=== PATIENT | female | born 1995 | race Caucasian/White ===

== ENCOUNTER → 2022-10-14 08:10 | Outpatient (BNVA) | payer OTHER, SELFPAY | PROVIDERS: PCP Internal Medicine; Referring Provider Internal Medicine; Visit Provider Physician Assistant Surgical ==

== ENCOUNTER → 2022-11-15 08:33 | Outpatient (BNVA) | payer OTHER, SELFPAY | PROVIDERS: PCP Internal Medicine; Visit Provider Physician Assistant | DX: E66.01 Morbid (severe) obesity due to excess calories (principal); Z68.41 Body mass index [BMI] 40.0-44.9, adult | CPT/HCPCS: 99202 ==

== ENCOUNTER 2023-01-04 09:01 | Outpatient (AMB) | payer OTHER, SELFPAY ==
--- NOTE | 2023-01-04 09:05 | A.OFFVIS_ITS ---
Intake VS Expanded 01/04/23 09:22 Height 5 ft 3 in Weight 230 lb BMI 40.7 Body Fat 101. Body Fat Percentage 43.8 Muscle Mass 123.0 Visceral Mass 10 Water Mass 93.2 BMR 1,860 Intake Visit Reasons: (OV) Initial Nutrition SWL Allergies No Known Allergies Allergy (Verified 11/15/22 08:38) HPI Nutrition Presentation Details Medical weight-start date 11/15/22 with Meryl Starting weight 241 Current weight today 230# - body comp noted and appears to be maintaining muscle mass and losing primarily fat mass I don't want to be the weight you guys want me at , she is comfortable at 160# Reason for consult elevated BMI Diet Assmnt Details 8:30am Premier shake - powder and powder (2 scoops in almond milk) Lunch salad (lettuce, tomato, carrots, cucumber, grilled chicken, low fat cheese sometimes, and dressing uses LF ranch or bals 4pm snack: protein bar or occitan yogurt Oikos or fruit 8pm dinner - salad and protein Premier coffee flavor in coffee - we talked about watching caffeine intake. Exercise: None now. was going with her friend, but her friend doesn't go anymore. pt feels that workout videos are very boring classes: 4/8 Previous weight loss methods attempted Her goal is to lose weight and be happier with her self. She reports first being concerned about her weight about 5 years ago.. She has tried multiple methods of weight loss including portion control without permanent results. She lives with her mother, sister and boyfriend. She works 5 days per week from 8;30 - 6 pm. Dietary counseling reduction Diagnosis Nutrition problem #1 overweight/obesity As related to (etiology) #1 excess energy intake and physical inactivity As evidenced by (sign/symptom) #1 high BMI Monitoring/Goals Nutrition problem monitoring total energy intake, level of knowledge/skill, total PRO intake, total CHO intake and weight Outcome progress progressing Learning/Education Readiness to learn good Stages of change action Educational materials provided Yes Most Recent Diabetes Results: No Data to Display [facility] Surgical History No pertinent past surgical history Family History Mother No problems noted. Father No problems noted. Social History Alcohol intake: current Alcohol intake frequency: holidays/special occasions only Patient Tobacco Use Status: Never used Tobacco Assessment & Plan Assessment & Plan (1) Morbid obesity: Code(s): E66.01 - Morbid (severe) obesity due to excess calories Patient Instructions: Pt felt todays appt was very productive. Discussed rationale for goal weihgt numbers . helped her with different bar and shake recs, also recipes and variety in her diet. continue walking 45+ minutes at least everyday with her dog and encouraged watching some videos at home for strength based workouts. Pt welcome to schedule f/u with me at the end of [facility] program Coding Level of Care Code Nutr Indiv Intake (05638) Diagnoses Morbid obesity E66.01 Time Spent (min) 40
[2023-01-04 09:22] VITALS: BMI 40.7
== END 2023-01-04 09:50 | disposition home or self-care (01) ==
PROVIDERS: PCP Internal Medicine; Visit Provider Dietitian, Registered
DX: E66.01 Morbid (severe) obesity due to excess calories (principal)

== ENCOUNTER → 2023-01-04 09:01 | Outpatient (BNVA) | payer OTHER, SELFPAY | PROVIDERS: PCP Internal Medicine; Visit Provider Dietitian, Registered | DX: E66.01 Morbid (severe) obesity due to excess calories (principal); Z68.41 Body mass index [BMI] 40.0-44.9, adult; Z71.3 Dietary counseling and surveillance | CPT/HCPCS: 97802 ==

== ENCOUNTER 2023-02-09 08:33 | Outpatient (AMB) | payer OTHER, SELFPAY ==
--- NOTE | 2023-02-09 08:35 | MHC.OFFVISWM ---
Intake VS Expanded 02/09/23 08:38 Height 5 ft 3 in Weight 232 lb BMI 41.1 BP 120/71 Blood Pressure Location Rt brachial Blood Pressure Position Sitting Respiratory Rate 16 Pulse 80 Pulse Source Pulse Oximeter Temp 97.3 F Temperature Source Temporal Artery Scan Pulse Oximetry 96 Oxygen Delivery Method Room Air Body Fat 107.0 Body Fat Percentage 46.1 Free Fat Mass 125.0 Muscle Mass 118.6 Visceral Mass 11.0 Water Mass 90.0 BMR 1,811 Intake Visit Reasons: (OV) F/U [facility] Allergies No Known Allergies Allergy (Verified 02/09/23 08:44) Medication List - Last Reviewed 02/09/23 by SUDHEER Frances amitriptyline 25 mg PO BEDTIME HPI HPI Comments History of Present Illness Details [facility] followup, [employer]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 Now 232 lbs, TBWL is 9.8 lbs or 4%. Pt states she recently started skipping 4 pm protein snack, stopped exercising and wants more ideas for vegetarian sources of protein. Meal plan - 8:30 am - Premier shake RTD, or with UAM - over 30 - 60 minutes 1pm - 2-3 oz chicken and < 6 oz salad or tuna and salad 4pm - - often misses this due to work schedule 8pm - same as lunch - but has 5 oz vegetable and 3 oz protein Exercise - gym 2-3 d elliptical - burning 200 calories, level 6, resistance ?Didn't liek thte LS videos PFSH Surgical History No pertinent past surgical history Family History Mother No problems noted. Father No problems noted. Social History Alcohol intake: current Alcohol intake frequency: holidays/special occasions only Patient Tobacco Use Status: Never used Tobacco Physical Exam Vital Signs: Last Vital Signs Temp 97.3 F 02/09/23 08:38 Pulse 80 02/09/23 08:38 Resp 16 02/09/23 08:38 BP 120/71 02/09/23 08:38 Pulse Ox 96 02/09/23 08:38 Oxygen Delivery Method Room Air 02/09/23 08:38 BMI result Body Mass Index 41.1 Assessment & Plan Assessment & Plan (1) Morbid obesity: Code(s): E66.01 - Morbid (severe) obesity due to excess calories Plan: [facility] program - she now understands the importance of consistent eating behaviours and role of exericse in weigh loss. Knows she needs to go Exercise - 4d - Sa, tue, , - elliptical 300 calories -- goal 2,00 devi/week. TBP - 30 minutes.2 d/week. We talked about adding tofu, seitan and tempeh to her meal planning, always having frozen vegetables, onions and garlic in the house. Meal plan -add second shake at 4pm - experiment with google recipes and vegetarian sources. She will text me next week with her exercise progress and meal ideas and questions about meals. Next appt in 1 month with me. Patient is morbidly obese and is not considered stable at this time. I spent 30 minutes in total with patient reviewing/updating records, examining the patient and counseling the patient on weight management as detailed above. Coding Level of Care Code Est Pt Level 4 (62883) Diagnoses Morbid obesity E66.01
[2023-02-09 08:38] VITALS: BP 120/71; PULSE 80; RESP 16; TEMP 36.3; O2SAT 96; BMI 41.1
== END 2023-02-09 09:33 | disposition home or self-care (01) ==
PROVIDERS: PCP Internal Medicine; Visit Provider Physician Assistant
DX: E66.01 Morbid (severe) obesity due to excess calories (principal); Z68.41 Body mass index [BMI] 40.0-44.9, adult
CPT/HCPCS: 99213

== ENCOUNTER → 2023-02-09 08:33 | Outpatient (BNVA) | payer OTHER, SELFPAY | PROVIDERS: PCP Internal Medicine; Visit Provider Physician Assistant ==

== ENCOUNTER 2023-03-14 08:29 | Outpatient (AMB) | payer SELFPAY ==
--- NOTE | 2023-03-14 08:32 | A.OFFVIS_ITS ---
Intake VS Expanded 03/14/23 08:38 BP 111/53 L Blood Pressure Location Rt brachial Blood Pressure Position Sitting Pulse 78 Pulse Source Pulse Oximeter Temp 97.0 F Temperature Source Tympanic Pulse Oximetry 96 Oxygen Delivery Method Room Air Height 5 ft 3 in Weight 230 lb BMI 40.7 Body Fat % 45.1 Body Fat Mass 103.6 Fat Free Mass 126.4 Visceral Fat Rating 11.0 Body Water % 39.5 Body Water Mass 90.8 Muscle Mass/Score 120.0 Basal Metabolic Rate/Score 1,822 Intake Visit Reasons: (OV) F/U [facility] Allergies No Known Allergies Allergy (Verified 03/14/23 08:37) Medication List - Last Reconciled 03/14/23 by Meryl Goncalves PA-C desogestrel-ethinyl estradiol 0.15-0.03 mg (Isibloom) 1 tab PO DAILY HPI HPI Comments History of Present Illness Details [facility] followup. [employer]ER appt 11/15 at 241.8 lbs, TBWL 11.8 lbs or 4.9%. Is happy with her weight loss progress so far. Meal plan: 8:30 am- Premier shake, doesn't like it anymore. 1pm - salad with chicken, shredded chees e with ranch dressing ranch dressing 4pm - another shake 8pm - dinner of salad with chicken or ot her vegetables snacks on raw vegetables with ranch dressing after dinner Gym - 2 d/ week,Elliptical 3000 calories in 1 hour [facility] Surgical History No pertinent past surgical history Family History Mother No problems noted. Father No problems noted. Social History Alcohol intake: current Alcohol intake frequency: holidays/special occasions only Patient Tobacco Use Status: Never used Tobacco Physical Exam Vital Signs: Last Vital Signs Temp 97.0 F 03/14/23 08:38 Pulse 78 03/14/23 08:38 BP 111/53 L 03/14/23 08:38 Pulse Ox 96 03/14/23 08:38 Oxygen Delivery Method Room Air 03/14/23 08:38 BMI result Body Mass Index 40.7 Assessment & Plan Assessment & Plan (1) Morbid obesity: Code(s): E66.01 - Morbid (severe) obesity due to excess calories Plan: We discussed that she should strive for at least 2 lbs per week weight loss. Wants to decrease shakes - so now once per day and other meal or either yogurt or cc with 1/4 berries or 2 hb eggs. Exercise- needs ot increase intensity and frequency. Goal of 2,000 devi burned per week, 10 devi/minute. Start ST videos or classes. Encouraged to text me with progress and questions. Next [facility] appt in 6 weeks. Patient is morbidly obese and is not considered stable at this time. I spent 30 minutes in total with patient reviewing/updating records, examining the patient and counseling the patient on weight management as detailed above. (2) Migraines, neuralgic: Code(s): G44.009 - Cluster headache syndrome, unspecified, not intractable Coding Level of Care Code Est Pt Level 4 (95782) Diagnoses Morbid obesity E66.01 Migraines, neuralgic G44.009
[2023-03-14 08:38] VITALS: BP 111/53; PULSE 78; TEMP 36.1; O2SAT 96; BMI 40.7
== END 2023-03-14 09:17 | disposition home or self-care (01) ==
PROVIDERS: PCP Internal Medicine; Visit Provider Physician Assistant
DX: E66.01 Morbid (severe) obesity due to excess calories (principal); G44.009 Cluster headache syndrome, unspecified, not intractable
CPT/HCPCS: 99214

== ENCOUNTER → 2023-03-14 08:29 | Outpatient (BNVA) | payer OTHER, SELFPAY | PROVIDERS: PCP Internal Medicine; Visit Provider Physician Assistant | DX: E66.01 Morbid (severe) obesity due to excess calories (principal); G44.009 Cluster headache syndrome, unspecified, not intractable; Z68.41 Body mass index [BMI] 40.0-44.9, adult | CPT/HCPCS: 99212 ==